=== PATIENT | female | born 1975 | race African-American/Black ===

== ENCOUNTER → 2018-03-21 | Outpatient (CLI) | payer BC ==
--- NOTE | 2018-03-21 15:26 | RAD ---
Examination: Ultrasound back of the neck HISTORY: History of lump in the back of the neck COMPARISON: None available FINDINGS: There is a 1.4 x 1.2 x 0.7 cm hypoechoic mass identified in the soft tissue of the back of the neck with vascular flow within. IMPRESSION: 1.4 cm hypoechoic mass identified in the soft tissue of the back of the neck with vascular flow within could be a solid mass or abnormal lymph node. Recommend cross-sectional imaging with IV contrast if clinically feasible for further evaluation. Electronically signed by: John Souza MD (03/21/2018 3:23 PM) [id number]
== END | disposition home or self-care (01) ==
LOC: US 14:29
PROVIDERS: ATTEND Family Medicine
DX: R22.1 Localized swelling, mass and lump, neck (principal)
CPT/HCPCS: 76536

== ENCOUNTER → 2018-03-28 | Outpatient (CLI) | payer BC ==
[~2018-03-28] MED LIST: CONTRAST GIVEN. MC PRN; IOHEXOL 300 MG/ML 100ML VIAL. IV ONE
--- NOTE | 2018-03-28 08:52 | RAD ---
CT SOFT TISSUE NECK W/CONTRAST Indication: Mass of the posterior neck for several months, painful Technique: Postcontrast CT imaging was performed of the neck, multiplanar reconstruction images submitted. Patient was premedicated due to stated iodine allergy. One or more of the following individualized dose reduction techniques were utilized for this examination: 1. Automated exposure control 2. Adjustment of the mA and/or kV according to patient size 3. Use of iterative reconstruction technique. Contrast: 75 cc Omnipaque 300 Comparison: March 21, 2018 ultrasound Findings: Marked was placed at the site of lump, located in the posterior midline of the neck at the C2 level. There is a superficial nonspecific soft tissue mass underlying the marker, extends to the skin surface. There is no associated calcification. This is estimated about 1.3 cm transverse by 1.1 cm AP by 1.5 cm cc. There was some internal vascularity in the mass on the ultrasound. There is mild hazy density of the adjacent fat. This is not extend into the musculature or involve the C2 spinous process. There is preservation of the parapharyngeal fat planes. No other enlarged or necrotic nodes are identified of the neck. There is no abnormality sorry gland. Paranasal sinuses and the mastoid air cells are aerated. Parotid and submandibular glands are symmetric in appearance. No asymmetry is identified of the epiglottis, aryepiglottic folds, tonsils, true or false cords. There is no significant abnormality of the limited visualized lung apices. There is medial deviation of the right carotid artery in the neck into the retropharyngeal region. IMPRESSION: 1. There is a nonspecific superficial soft tissue mass at site of concern located at the posterior midline of the neck at the C2 level. Location is unusual for abnormal lymph node. There is no significant invasion of the adjacent musculature. Biopsy should be considered. Electronically signed by: Simone Santo MD (03/28/2018 8:48 AM) [id number]
== END | disposition home or self-care (01) ==
LOC: CT 07:28
PROVIDERS: ATTEND Family Medicine
DX: R22.1 Localized swelling, mass and lump, neck (principal)
CPT/HCPCS: 70491; Q9967

== ENCOUNTER 2018-07-20 16:28 | Emergency (ER) | payer BC ==
[~2018-07-20] VITALS: Ht 175.3 cm; Wt 85.7 kg
[2018-07-20] MEDS ORDERED: KETOROLAC 30 MG/ML VIAL. IV ONE (17:30)
[2018-07-20] MEDS ORDERED: METOCLOPRAMIDE HCL 10 MG/2 ML VIAL. IV ONE (17:30)
[2018-07-20] MEDS ORDERED: IV NORMAL SALINE 1000ML BAG 1,000 ML IV ONE (17:30)
[2018-07-20] MEDS ORDERED: diphenhydrAMINE 50 MG/ML VIAL IVP ONE (17:30)
[2018-07-20 17:35] LABS: BILIRUBIN,URINE NEGATIVE (NEG); CLARITY,URINE CLEAR; COLOR,URINE YELLOW; NITRITE,URINE NEGATIVE (NEG); PROTEIN,URINE NEGATIVE (NEG-TRACE); UROBILINOGEN,URINE 0.2 mg/dL (0.2 mg/dL)
[2018-07-20 17:47] LABS: BACTERIA,URINE 0 /HPF (0-FEW); RBC,URINE 0 /HPF (0-2); SQUAMOUS EPITHELIAL CELL,UR FEW /LPF
[2018-07-20 17:55] LABS: BASO # 0.1 x10^3/uL (0.0-0.2); BASO % 2 % (0-3); EOS % 1 % (0-3); HEMOGLOBIN 9.4 g/dL (12.0-15.5); LYMPH # 1.1 x10^3/uL (1.0-4.8); LYMPH % 42 % (24-48); MEAN CORPUSCULAR HEMOGLOBIN 27 pg (25-35); MEAN CORPUSCULAR HGB CONC 33 g/dL (31-37); MEAN CORPUSCULAR VOLUME 81 fL (79-100); MONO # 0.3 x10^3/uL (0.0-1.1); MONO % 10 % (0-9); NEUT # 1.2 x10^3uL (1.8-7.7); NEUT % 45 % (31-73); PLATELET COUNT 363 x10^3/uL (140-400); RED BLOOD COUNT 3.44 x10^6/uL (3.50-5.40); RED CELL DISTRIBUTION WIDTH 19.8 % (11.5-14.5); WHITE BLOOD COUNT 2.7 x10^3/uL (4.0-11.0)
[2018-07-20 18:07] LABS: ALBUMIN 3.3 g/dL (3.4-5.0); ALBUMIN/GLOBULIN RATIO 0.9 (1.0-1.7); CREATININE 0.8 mg/dL (0.6-1.0); GFR 95.6; TOTAL BILIRUBIN 0.4 mg/dL (0.2-1.0); TOTAL PROTEIN 7.1 g/dL (6.4-8.2)
[2018-07-20 18:12] LABS: POTASSIUM 2.9 mmol/L (3.5-5.1)
[2018-07-20] MEDS ORDERED: POTASSIUM CHLORIDE 20 MEQ TABLET.ER. PO ONE (18:30)
[2018-07-20] MEDS ORDERED: SULF1TAB24 PO (19:18)
--- NOTE | 2018-07-20 19:18 | PHYS DOC ---
Past Medical History Past Medical History: Migraines Past Surgical History: Other Additional Past Surgical Histo: cyst removall from neck, plantar faciatus surgery, fibroid embolization Alcohol Use: None Drug Use: None Adult General Chief Complaint Chief Complaint: HEADACHE HPI HPI Patient is a 42 year old female who presents with a migraine �21 days. The patient has a long-standing chronic migraine history. She states that she has taken all of the medications that she has been prescribed to arrest this headache but nothing is working. She denies any recent illness. She states that this is a normal headache for her but she is usually able to interrupted with her medication cocktail. Her primary care provider suggested today that she go into the emergency department to try IV medications. Review of Systems Review of Systems Constitutional: Denies fever or chills [] Eyes: Denies change in visual acuity, redness, or eye pain [] HENT: Denies nasal congestion or sore throat [] Respiratory: Denies cough or shortness of breath [] Cardiovascular: No additional information not addressed in HPI [] GI: Denies abdominal pain, nausea, vomiting, bloody stools or diarrhea [] : Denies dysuria or hematuria [] Musculoskeletal: Denies back pain or joint pain [] Integument: Denies rash or skin lesions [] Neurologic: See history of present illness Endocrine: Denies polyuria or polydipsia [] All other systems were reviewed and found to be within normal limits, except as documented in this note. Current Medications Current Medications Current Medications Medications (Trade) Dose Ordered Sig/Bay Start Time Stop Time Status Last Admin Dose Admin Diphenhydramine HCl (Benadryl) 50 mg 1X ONCE 07/20/18 17:30 07/20/18 17:31 DC 07/20/18 17:45 50 MG Ketorolac Tromethamine (Toradol 30mg Vial) 30 mg 1X ONCE 07/20/18 17:30 07/20/18 17:31 DC 07/20/18 17:47 30 MG Metoclopramide HCl (Reglan Vial) 10 mg 1X ONCE 07/20/18 17:30 07/20/18 17:31 DC 07/20/18 17:49 10 MG Potassium Chloride (Klor-Con) 40 meq 1X ONCE 07/20/18 18:30 07/20/18 18:31 DC Sodium Chloride 1,000 ml @ 1,000 mls/hr 1X ONCE 07/20/18 17:30 07/20/18 18:29 DC 07/20/18 17:43 1,000 MLS/HR Allergies Allergies Allergies Coded Allergies Type Severity Reaction Last Updated Verified naproxen Allergy Severe swelling 07/20/18 Yes iodine Allergy Intermediate 03/26/18 Yes Physical Exam Physical Exam Constitutional: Well developed, well nourished, no acute distress, non-toxic appearance. [] HENT: Normocephalic, atraumatic, bilateral external ears normal, oropharynx moist, no oral exudates, nose normal. [] Eyes: PERRLA, EOMI, conjunctiva normal, no discharge. [] Neck: Normal range of motion, no tenderness, supple, no stridor. [] Cardiovascular:Heart rate regular rhythm, no murmur [] Lungs & Thorax: Bilateral breath sounds clear to auscultation [] Abdomen: Bowel sounds normal, soft, no tenderness, no masses, no pulsatile masses. [] Skin: Warm, dry, no erythema, no rash. [] Neurologic: Alert and oriented X 3, normal motor function, normal sensory function, no focal deficits noted, cranial nerves II through XII are grossly intact. [] Psychologic: Affect normal, judgement normal, mood normal. [] Current Patient Data Vital Signs Vital Signs Date Time Temp Pulse Resp B/P (MAP) Pulse Ox O2 Delivery O2 Flow Rate FiO2 07/20/18 17:52 76 14 100 07/20/18 17:20 98.6 140/93 (109) Room Air 98.6 Lab Values Laboratory Tests Test 07/20/18 17:20 07/20/18 17:30 Urine Collection Type Unknown Urine Color Yellow Urine Clarity Clear Urine pH 7.0 Urine Specific [place] 1.010 Urine Protein Negative mg/dL (NEG-TRACE) Urine Glucose (UA) Negative mg/dL (NEG) Urine Ketones (Stick) Negative mg/dL (NEG) Urine Blood Trace (NEG) Urine Nitrite Negative (NEG) Urine Bilirubin Negative (NEG) Urine Urobilinogen Dipstick 0.2 mg/dL (0.2 mg/dL) Urine Leukocyte Esterase Trace (NEG) Urine RBC 0 /HPF (0-2) Urine WBC 1-4 /HPF (0-4) Urine Squamous Epithelial Cells Few /LPF Urine Bacteria 0 /HPF (0-FEW) Urine Mucus Mod /LPF White Blood Count 2.7 x10^3/uL (4.0-11.0) L Red Blood Count 3.44 x10^6/uL (3.50-5.40) L Hemoglobin 9.4 g/dL (12.0-15.5) L Hematocrit 28.0 % (36.0-47.0) L Mean Corpuscular Volume 81 fL (79-100) Mean Corpuscular Hemoglobin 27 pg (25-35) Mean Corpuscular Hemoglobin Concent 33 g/dL (31-37) Red Cell Distribution Width 19.8 % (11.5-14.5) H Platelet Count 363 x10^3/uL (140-400) Neutrophils (%) (Auto) 45 % (31-73) Lymphocytes (%) (Auto) 42 % (24-48) Monocytes (%) (Auto) 10 % (0-9) H Eosinophils (%) (Auto) 1 % (0-3) Basophils (%) (Auto) 2 % (0-3) Neutrophils # (Auto) 1.2 x10^3uL (1.8-7.7) L Lymphocytes # (Auto) 1.1 x10^3/uL (1.0-4.8) Monocytes # (Auto) 0.3 x10^3/uL (0.0-1.1) Eosinophils # (Auto) 0.0 x10^3/uL (0.0-0.7) Basophils # (Auto) 0.1 x10^3/uL (0.0-0.2) Sodium Level 141 mmol/L (136-145) Potassium Level 2.9 mmol/L (3.5-5.1) *L Chloride Level 104 mmol/L (98-107) Carbon Dioxide Level 29 mmol/L (21-32) Anion Gap 8 (6-14) Blood Urea Nitrogen 9 mg/dL (7-20) Creatinine 0.8 mg/dL (0.6-1.0) Estimated GFR (Cockcroft-Gault) 95.6 BUN/Creatinine Ratio 11 (6-20) Glucose Level 85 mg/dL (70-99) Calcium Level 9.0 mg/dL (8.5-10.1) Total Bilirubin 0.4 mg/dL (0.2-1.0) Aspartate Amino Transferase (AST) 24 U/L (15-37) Alanine Aminotransferase (ALT) 23 U/L (14-59) Alkaline Phosphatase 62 U/L (46-116) Total Protein 7.1 g/dL (6.4-8.2) Albumin 3.3 g/dL (3.4-5.0) L Albumin/Globulin Ratio 0.9 (1.0-1.7) L Laboratory Tests 07/20/18 17:30 Laboratory Tests 07/20/18 17:30 EKG EKG [] Radiology/Procedures Radiology/Procedures [] Course & Med Decision Making Course & Med Decision Making Pertinent Labs and Imaging studies reviewed. (See chart for details) []The patient was given a bolus of normal saline, Zofran, Reglan and Benadryl in the emergency department. This has completely resolved her headache. She was found to be low in potassium and she was given oral potassium. She also has leukocytes in her urine will be treated for UTI. She is in agreement with this plan. Dragon Disclaimer Dragon Disclaimer This electronic medical record was generated, in whole or in part, using a voice recognition dictation system. Departure Departure Impression: Primary Impression: Migraine Additional Impression: Urinary tract infection Disposition: 01 HOME, SELF-CARE Condition: STABLE Referrals: CURT BELLO (PCP) Patient Instructions: Migraine Headache, Urinary Tract Infection Additional Instructions: Take the medication as prescribed. Follow-up with your primary care provider in one week for urine recheck. If worsening return to the emergency department. Scripts Sulfamethoxazole/Trimethoprim (BACTRIM DS TABLET) 1 Each Tablet 1 TAB PO BID for UTI, #14 TAB Prov: MEL LANE APRN 07/20/18 Problem Qualifiers [address]EL L[address] APRN Jul 20, 2018 19:18
[2018-07-20 19:30] LABS: % BASOS 1 % (0-3); % EOS 2 % (0-5); % LYMPHS 46 % (24-48); % MONOS 7 % (0-10); % SEGS 44 % (35-66); PLT ESTIMATE ADEQUATE (ADEQUATE)
[2018-07-20 19:31] LABS: ANISOCYTOSIS SLIGHT; HYPOCHROMIA SLIGHT; OVALOCYTES FEW; POIKILOCYTOSIS SLIGHT; POLYCHROMASIA SLIGHT; SPHEROCYTES OCC; TEAR DROP CELLS OCC
[2018-07-20 19:50] VITALS: BP 101/58
== END 2018-07-20 20:03 | disposition home or self-care (01) ==
LOC: ER 16:28
DX: G43.909 Migraine, unspecified, not intractable, without status migrainosus (principal); N39.0 Urinary tract infection, site not specified; Z88.8 Allergy status to other drugs, medicaments and biological substances; Z91.041 Radiographic dye allergy status
CPT/HCPCS: 36415; 80053; 81001; 85007; 85025; 96374; 96375; 99283; J1200; J1885; J2765; J7030; 81025; 87086

== ENCOUNTER → 2019-04-04 | Outpatient (CLI) | payer BC ==
[~2019-04-04] MED LIST changes: -CONTRAST GIVEN. MC PRN; -IOHEXOL 300 MG/ML 100ML VIAL. IV ONE; +SULF1TAB24 PO
--- NOTE | 2019-04-05 17:00 | RAD ---
DATE: 04/04/2019 EXAM: MAMMO ADRY SCREENING BILATERAL HISTORY: Routine screening COMPARISON: 05/15/2017 screening mammographic exam This study was interpreted with the benefit of Computerized Aided Detection (CAD). Breast Density: SCATTERED The breast parenchyma shows scattered fibroglandular densities. Breast parenchyma level B. FINDINGS: No masses or distortion. No suspicious calcifications. IMPRESSION: Stable BI-RADS CATEGORY: 1 NEGATIVE RECOMMENDED FOLLOW-UP: 12M 12 MONTH FOLLOW-UP PQRS compliance statement: Patient information was entered into a reminder system with a target due date for the next mammogram. Mammography is a sensitive method for finding small breast cancers, but it does not detect them all and is not a substitute for careful clinical examination. A negative mammogram does not negate a clinically suspicious finding and should not result in delay in biopsying a clinically suspicious abnormality. "Our facility is accredited by the [employer] Mammography Program."
== END | disposition home or self-care (01) ==
LOC: MAMMO 12:41
PROVIDERS: ATTEND Family Medicine
DX: N64.89 Other specified disorders of breast (principal); Z12.31 Encounter for screening mammogram for malignant neoplasm of breast
CPT/HCPCS: 77063; 77067

== ENCOUNTER → 2020-04-15 | Outpatient (CLI) | payer BC ==
--- NOTE | 2020-04-16 14:30 | RAD ---
DATE: 04/15/2020 EXAM: MAMMO ADRY SCREENING BILATERAL HISTORY: Screening COMPARISON: 04/04/2019 This study was interpreted with the benefit of Computerized Aided Detection (CAD). Breast Density: There are scattered areas of fibroglandular density. FINDINGS: There is a 9 mm ovoid nodule in the posterior right breast, 10.5 cm posterior to the nipple at approximately 8:00. This is best seen on MLO tomosynthesis slice 15. No other mass, suspicious calcifications, or architectural distortion. IMPRESSION: 9 mm mass in the posterior outer right breast. Recommend right breast ultrasound to further evaluate. BI-RADS CATEGORY: 0-INCOMPLETE. NEED ADDITIONAL IMAGING EVALUATION. RECOMMENDED FOLLOW-UP: Right breast ultrasound. PQRS compliance statement: Mammography is a sensitive method for finding small breast cancers, but it does not detect them all and is not a substitute for careful clinical examination. A negative mammogram does not negate a clinically suspicious finding and should not result in delay in biopsying a clinically suspicious abnormality. "Our facility is accredited by the [employer] Mammography Program." MID
== END ==
LOC: MAMMO 08:13
PROVIDERS: ATTEND Family Medicine
DX: Z12.31 Encounter for screening mammogram for malignant neoplasm of breast (principal); N64.89 Other specified disorders of breast
CPT/HCPCS: 77063; 77067

== ENCOUNTER → 2020-04-27 | Outpatient (CLI) | payer BC ==
--- NOTE | 2020-04-27 15:35 | RAD ---
EXAMINATION: BREAST RIGHT, 04/27/2020 10:30 AM CLINICAL INDICATION: 44-year-old woman recalled from screening mammogram for mass in the right breast on screening mammogram. COMPARISON: Screening mammogram 04/15/2020 FINDINGS: There is no abnormality at 8:00 10.5 cm from the nipple in the right breast. At 8:00, 6 cm from the nipple there is a questionable ovoid hypoechoic mass measuring 7 x 6 x 5 mm with possible fatty hilum, which may represent a lymph node, although this could also be normal fibroglandular tissue. There is no definite suspicious abnormality. IMPRESSION: 1. No definite sonographic abnormality in the area of concern at 8:00 10.5 cm from the nipple in the right breast. 2. There is a questionable mass at 8:00 6 cm from the nipple that if real may be a lymph node, however this may be normal fibroglandular tissue, particularly as there is no abnormality in this region on tomosynthesis. Recommend 6 month follow-up ultrasound to ensure stability. 3. BI-RADS 3-probably benign. 4. Recommend 6 month follow-up with diagnostic right breast mammogram and ultrasound. The patient will receive a reminder letter by mail when she is due for her next exam. Electronically signed by: Lily Munguia MD (04/27/2020 3:32 PM) [id number]
== END ==
LOC: US 10:24
PROVIDERS: ATTEND Family Medicine
DX: R92.8 Other abnormal and inconclusive findings on diagnostic imaging of breast (principal); N63.13 Unspecified lump in the right breast, lower outer quadrant
CPT/HCPCS: 76641

== ENCOUNTER → 2020-10-22 | Outpatient (CLI) | payer BC ==
--- NOTE | 2020-10-26 10:20 | RAD ---
DATE: 10/22/2020 EXAM: MAMMO ADRY DIAG RT, BREAST RIGHT HISTORY: Six-month follow-up of probably benign area in the right breast that 8:00 6 cm from the nipple. COMPARISON: 08/28/2019, 04/15/2020, 04/04/2019 This study was interpreted with the benefit of Computerized Aided Detection (CAD). Breast Density: SCATTERED The breast parenchyma shows scattered fibroglandular densities. Breast parenchyma level B. FINDINGS: MAMMOGRAM: There is no suspicious mass, architectural distortion, or calcification in the right breast. ULTRASOUND: There is normal fibroglandular tissue in the lower outer right breast. No mass or cyst. IMPRESSION: No evidence of malignancy. Normal fibroglandular tissue at 8:00 6 cm from the nipple. Recommend return to annual screening mammogram BI-RADS CATEGORY: 2 BENIGN FINDING(S) RECOMMENDED FOLLOW-UP: Return to annual screening mammogram, due in April 2021. PQRS compliance statement: Patient information was entered into a reminder system with a target due date for the next mammogram. Mammography is a sensitive method for finding small breast cancers, but it does not detect them all and is not a substitute for careful clinical examination. A negative mammogram does not negate a clinically suspicious finding and should not result in delay in biopsying a clinically suspicious abnormality. "Our facility is accredited by the [employer] Mammography Program." MID
== END ==
LOC: MAMMO 12:50
PROVIDERS: ATTEND Family Medicine
DX: R92.8 Other abnormal and inconclusive findings on diagnostic imaging of breast (principal)
CPT/HCPCS: 76641; 77065; G0279; 77061

== ENCOUNTER → 2021-06-10 | Outpatient (CLI) | payer BC ==
--- NOTE | 2021-06-10 16:19 | RAD ---
Bilateral digital screening 2-D and 3-D (digital breast tomosynthesis) mammogram: Reason for examination: Routine screening. Comparison: Mammograms from 04/15/2020 and 04/04/2019. Interpretation was made with the benefit of CAD. FINDINGS: Breast density: Category B. There are scattered areas of fibroglandular density. No suspicious breast mass, malignant appearing calcifications, or architectural distortion is seen. IMPRESSION: No evidence of malignancy. Assessment: BI-RADS 1. Negative. Recommendation: Routine screening mammograms. The patient will receive a letter with the results in the mail. Patient information will be entered i nto the mammography reminder system with a target recall date for the next mammogram. A reminder piedad er will be generated. Electronically signed by: Alicia Rosado MD (06/10/2021 4:17 PM) [id number]
== END ==
LOC: MAMMO 12:04
PROVIDERS: ATTEND Advanced Practice Midwife
DX: Z12.31 Encounter for screening mammogram for malignant neoplasm of breast (principal)
CPT/HCPCS: 77063; 77067